=== PATIENT | male | born 1980 | race Caucasian/White ===

== ENCOUNTER 2020-07-11 10:22 | Emergency (ER) | payer BC, SELFPAY ==
--- NOTE | ~2020-07-11 | CT_ITS ---
EXAMINATION: CT brain wo con EXAM DATE: 07/11/2020 11:02 INDICATION: rt facial droop for few days. TECHNIQUE: Spiral CT of the head was performed without contrast. Axial, coronal and sagittal images were reviewed. The dose-length product (DLP) for this examination was 605.33 mGy-cm. The exposure w as tailored according to patient size, and iterative reconstruction (ASIR) was used as additional dos e reduction technique. There is no prior study for comparison. FINDINGS: There is no acute intraparenchymal hemorrhage. No evidence of intraparenchymal brain mass lesion. No evidence of acute infarction. There is no mass effect or midline shift. The ventricles are normal in size. There are no extra-axial collections. There are no acute calvarial fractures. T he orbits are unremarkable. Soft tissue is unremarkable. The visualized sinuses and mastoid air bernice ls are well aerated. IMPRESSION: 1. No acute intracranial findings. Reviewed, dictated and finalized at location B. TIC YARN TWISTER
--- NOTE | ~2020-07-11 | XR_ITS ---
EXAMINATION: XR chest 1V EXAM DATE: 07/11/2020 11:05 INDICATION: Right facial droop. TECHNIQUE: Portable AP frontal chest x-ray was obtained. There is no prior study for comparison. FINDINGS: The lungs are clear. There are no pleural effusions. The cardiomediastinal silhouette is within normal limits. There is no pneumothorax suspected. The bones and soft tissues are unremarkab le. IMPRESSION: No acute cardiopulmonary findings. Reviewed, dictated and finalized at location B. N ELEVATOR OPERATOR
[2020-07-11 10:25] VITALS: BP 132/83; PULSE 77; RESP 16; TEMP 36.3; O2SAT 100
--- NOTE | 2020-07-11 10:32 | ECG_ITS ---
Measurements Intervals [place] Rate: 67 P: 53 RI: 188 QRS: -34 QRSD: 150 T: 35 QT: 387 QTc: 410 Interpretive Statements SINUS RHYTHM LEFT AXIS DEVIATION RIGHT BUNDLE BRANCH BLOCK BASELINE ARTIFACT- I, II, AVR ABNORMAL ECG Electronically Signed On 07-11-2020 12:05:20 AERIAL CROP DUSTER by Pj Conklin D.O.
[2020-07-11 11:09] VITALS: BP 121/77; PULSE 78; O2SAT 99
[2020-07-11 11:57] VITALS: BP 158/108; PULSE 98; RESP 20; O2SAT 100
[2020-07-11 12:27] LABS: Basophils Percent Auto 0.5 % (0.2-1.2); Eosinophils Absolute Auto 0.2 K/mm3 (0-0.3); Eosinophils Percent Auto 2.8 % (0-4.4); Hematocrit 42.8 % (42.0-52.0); Hemoglobin 15.1 g/dL (14.0-18.0); Immature Granulocyte Absolute 0.02 K/mm3 (0.00-0.031); Immature Granulocyte Percent A 0.3 % (0-0.5); Lymphocytes Percent Auto 45.9 % (18.3-44.2); Mean Corpuscular HGB Conc 35.3 g/dl (32-36); Mean Corpuscular Hemoglobin 31.5 pg (26-34); Mean Corpuscular Volume 89.4 fl (80-100); Mean Platelet Volume 9.6 fl (7.4-10.4); Monocytes Absolute Auto 0.4 K/mm3 (0.1-0.6); Monocytes Percent Auto 5.8 % (2.6-8.5); Neutrophils Absolute Auto 2.9 K/mm3 (1.3-6.7); Neutrophils Percent Auto 44.7 % (45.5-73.1); Platelet Count Result 213 k/mm3 (150-375); Red Blood Count 4.79 M/mm3 (4.6-6.20); White Blood Count 6.5 K/mm3 (4.5-10.0)
--- NOTE | 2020-07-11 12:38 | ED.NEUROSD ---
HPI - Neuro Symptoms/Deficit General Chief Complaint: Neuro Symptoms/Deficit Stated Complaint: facial droop x 3 days Time Seen by Provider: 07/11/20 12:08 Source: patient and family Mode of arrival: ambulatory Limitations: no limitations History of Present Illness HPI Narrative: 40 years old white male complaining of numbness and weird feeling on the right side of the face started last night, Patient denies any similar symptoms anywhere else in his body. Patient denies any fever, chills, nausea, vomiting, headache, or hearing abnormality. Related Data Home Medications Medication Instructions Recorded Confirmed clonazepam 07/11/20 duloxetine mg PO 07/11/20 Allergies Allergy/AdvReac Type Severity Reaction Status Date / Time No Known Allergies Allergy Verified 07/11/20 10:33 Review of Systems Review of Systems: Narrative: CONSTITUTIONAL: Denies fever, chills, or sweats. EYES: Denies visual changes, redness, or discharge. ENT: Denies rhinorrhea, congestion, sore throat, or otalgia. CARDIOVASCULAR: Denies chest pain, palpitations, or edema. RESPIRATORY: Denies cough or dyspnea. GASTROINTESTINAL: Denies abdominal pain, nausea, vomiting, or diarrhea. GENITOURINARY: Denies dysuria or hematuria. SKIN: Denies rash or itching. MUSCULOSKELETAL: Denies back pain, joint pain, or myalgia. NEUROLOGIC: Denies headache, numbness, or weakness. PSYCHIATRIC: Denies anxiety or depression. [facility] Social History Social History Gender identity (if verbalized by the patient): Male Exam Narrative: Exam Narrative: General appearance: Well-developed, well-nourished Skin: Normal color Head: Normocephalic, nontraumatic Eyes: Clear conjunctiva ENT: Oropharynx normal, ears normal, nose normal Neck: Supple, nontender Chest and respiratory: Airway patent, no respiratory distress, no accessory muscle use Heart: Regular rate/rhythm Abdomen: Soft, nontender, no organomegaly, quiet bowel sounds Vascular: Normal peripheral pulses, normal capillary refill. Musculoskeletal: Normal range of motion, nontender back Neurologic: Alert and oriented ?3, slight right facial drooping. Neuro: General: oriented to person, oriented to place, oriented to time, patient oriented x3 and gait normal Cranial nerves: Yes Facial sensation intact/muscles of mastication intact (Slight right facial drooping) Motor exam (neuro): 5/5 motor strength present throughout and Normal motor muscle tone present throughout Sensory Exam: normal sensation Course Course Emergency Course: Stable Vital Signs Vital signs: Vital Signs Temperature 36.3 C L 07/11/20 10:25 Pulse Rate 77 07/11/20 10:25 Respiratory Rate 16 07/11/20 10:25 Blood Pressure 132/83 07/11/20 10:25 Pulse Oximetry 100 07/11/20 10:25 Temperature 36.3 C L 07/11/20 10:25 Pulse Rate 98 07/11/20 11:57 Respiratory Rate 20 07/11/20 11:57 Blood Pressure 158/108 H 07/11/20 11:57 Pulse Oximetry 100 07/11/20 11:57 MDM - Neuro Symptoms/Deficit MDM Narrative Medical decision making narrative: Right Gaviria's palsy is my concern. Labs, CT head ordered. Further plan to follow Differential Diagnosis Differential diagnosis: Likely other (Gaviria's palsy, peripheral) Lab Data Result diagrams: 07/11/20 12:16 07/11/20 12:16 Labs: Lab Results 07/11/20 07/11/20 07/11/20 Range/Units 12:16 12:16 12:16 WBC 6.5 (4.5-10.0) K/mm3 RBC 4.79 (4.6-6.20) M/mm3 Hgb 15.1 (14.0-18.0) g/dL Hct 42.8 (42.0-52.0) % MCV 89.4 (80-100) fl MCH 31.5 (26-34) pg MCHC 35.3 (32-36) g/dl RDW 12.0 (11.5-14.5) % P
[2020-07-11 12:39] LABS: Anion Gap 6 mmol/L (8-16); Blood Urea Nitrogen 19 mg/dL (9-20); Calcium 9.5 mg/dL (8.4-10.2); Carbon Dioxide 29 mmol/L (22-30); Chloride 103 mmol/L (98-107); Estimated CRCL calculation 112 ml/min; Estimated Glomerular Filt Rate > 60; Glucose 101 mg/dL (75-110); INR 0.8; Potassium 4.2 mmol/L (3.4-5.0); Prothrombin Time 12.1 Seconds (11.1-14.7); Sodium 138 mmol/L (137-145)
[2020-07-11 12:52] LABS: Troponin I < 0.012 ng/mL (0.000-0.034)
[2020-07-11 13:09] VITALS: BP 138/78; PULSE 57; RESP 18; O2SAT 99
== END 2020-07-11 13:11 | disposition home or self-care (01) ==
PROVIDERS: Emergency Provider Emergency Medicine; PCP Internal Medicine
DX: G51.0 Bell's palsy (principal); I45.10 Unspecified right bundle-branch block; R94.31 Abnormal electrocardiogram [ECG] [EKG]
CPT/HCPCS: 36415; 70450; 71045; 80048; 84484; 85025; 85610; 85730; 93005; 99284

== ENCOUNTER 2021-06-23 13:48 | Emergency (ER) | payer BC, SELFPAY ==
[2021-06-23 14:06] VITALS: BP 154/87; PULSE 77; RESP 18; TEMP 37.6; O2SAT 98
--- NOTE | 2021-06-23 14:24 | ED.EAR ---
HPI - Ear Problem General Chief complaint: Ear Stated complaint: ear pain Source: patient and RN notes reviewed Mode of arrival: ambulatory History of Present Illness HPI Narrative: This is a 41-year-old male with a presented to urgent care with complaints of right ear pain that is occurred on .according to patient the canal on his right ear is swollen patient notes that his partner also noticed blood tinged drainage on the affected ear he also notes that he has had some decrease in hearing due to his swelling. Patient notes that he often rinses his ear out at work due to debridement and believes he may have gotten swimmer's ear as a result of not drying his ear out completely. The patient denies SOB, CP, palpitation, extremity numbness, lightheadedness, dizziness, constipation, diarrhea, chills, or fever. Related Data Home Medications Medication Instructions Recorded Confirmed clonazepam 07/11/20 emtricitabine-tenofovir alafen tablet PO 06/23/21 [Descovy] Allergies Allergy/AdvReac Type Severity Reaction Status Date / Time No Known Allergies Allergy Verified 06/23/21 14:05 Review of Systems Review of Systems: A 14 organ system Review of Systems was performed and pertinent positives included in the HPI, otherwise remaining ROS is negative. [facility] Family History Family History (Updated 06/23/21 @ 14:27 by DARCIE Casey) Other Family history non-contributory Social History Social History Gender identity (if verbalized by the patient): Male Exam Narrative: GENERAL: This is a well-nourished, well-developed patient, in no apparent distress. HEAD: normocephalic, atraumatic. EYES: PERRL. Sclera clear/white. Vision is grossly intact. EARS: External ears normal, auditory canals edema with erythematous, unable to visualize TMs NOSE: External nose normal with no obvious nasal discharge, nares without redness, no rhinorrhea. THROAT: Mucous membranes moist, posterior pharynx clear. NECK: Neck supple, non-tender without lymphadenopathy, masses or thyromegaly. CARDIOVASCULAR: Regular rate and rhythm without murmurs, gallops, or rubs. RESPIRATORY: Clear to auscultation. Breath sounds equal bilaterally. No wheezes, rales, or rhonchi. GASTROINTESTINAL: Abdomen soft, non-tender, nondistended. Bowel sounds are active. No hepato-splenomegaly, or palpable masses. No guarding. SKIN: warm, intact with no suspicious lesions or rash, good texture and turgor. NEURO: awake, alert, and oriented to person, place and time. There were no obvious focal neurologic abnormalities. Steady gait EXTREMITIES: Normal range of motion. No edema. No calf tenderness. Negative Homans sign bilaterally. BACK: Nontender without deformity or crepitance. No flank tenderness. Course Course Emergency Course: Patient will be treated for otitis media and externa with Augmentin DS twice daily x7 days and Cipro 0.3 eardrops x7 days. Patient also instructed to buy [id number] cerumen softener or use have peroxide and water to regularly cleanse his ears and to make sure they are dry afterwards. Vital Signs Vital signs: Vital Signs Temperature 99.6 F 06/23/21 14:06 Pulse Rate 77 06/23/21 14:06 Respiratory Rate 18 06/23/21 14:06 Blood Pressure 154/87 H 06/23/21 14:06 Pulse Oximetry 98 06/23/21 14:06 Temperature 99.6 F 06/23/21 14:06 Pulse Rate 77 06/23/21 14:06 Respiratory Rate 18 06/23/21 14:06 Blood Pressure 154/87 H 06/23/21 14:06 Pulse Oximetry 98 06/23/21 14:06 Medical Decision Making Differential Diagnosis Differential Diagnosis: Otitis media versus otitis externa versus foreign body in ear Vital Signs Vital Signs: Vital Signs Temperature 99.6 F 06/23/21 14:06 Pulse Rate 77 06/23/21 14:06 Respiratory Rate 18 06/23/21 14:06 Blood Pressure 154/87 H 06/23/21 14:06 Pulse Oximetry 98 06/23/21 14:06 Temperature
== END 2021-06-23 14:46 | disposition home or self-care (01) ==
PROVIDERS: Emergency Provider Nurse Practitioner
DX: H60.501 Unspecified acute noninfective otitis externa, right ear (principal); H66.90 Otitis media, unspecified, unspecified ear
CPT/HCPCS: 99213; G0463

== ENCOUNTER 2021-09-07 18:33 | Emergency (ER) | payer BC, SELFPAY ==
--- NOTE | ~2021-09-07 | CT_ITS ---
EXAMINATION: CT brain wo con DATE: 09/07/2021 20:09 INDICATION: Headache TECHNIQUE: Computed tomography (CT) of the head was performed without intravenous contrast. Sagittal and coronal reconstructions were performed. The mA was adjusted according to patient size. Iterative reconstruction technique was employed. The dose-length product was 605.33 mGy-cm. COMPARISON: head CT dated 07/11/2020 FINDINGS: No acute intracranial hemorrhage, acute infarction or abnormal extra axial fluid collection. Ventricl es are normal and symmetric. No mass/mass effect. The orbits, paranasal sinuses and mastoid air cells are normal. IMPRESSION: 1. Normal head CT. Reviewed, dictated and finalized at location A. N WINDER IMPRESSION: 1. Normal head CT.
--- NOTE | ~2021-09-07 | XR_ITS ---
EXAMINATION: XR chest 2V DATE: 09/07/2021 20:16 INDICATION: Fever, headaches and photophobia TECHNIQUE: frontal and lateral views of the chest were obtained. COMPARISON: Chest radiograph dated 07/11/2020 FINDINGS: The lungs remain clear with no focal airspace opacities, pulmonary edema, pleural effusion or pneumot horax. The cardiomediastinal silhouette is normal. Visualized bones and soft tissues are unremarkable . IMPRESSION: 1. No acute cardiopulmonary disease. Reviewed, dictated and finalized at location A. MAL SURFACING MACHINE OPERATOR
--- NOTE | ~2021-09-07 | CT_ITS ---
EXAMINATION: CT abdomen pelvis w con DATE: 09/08/2021 00:57 INDICATION: Fever. Nausea. TECHNIQUE: Computed tomography (CT) of the abdomen and pelvis was performed with 100 mL Omnipaque 350 intravenous contrast. Automated exposure control and iterative reconstruction technique were employe d. The dose-length product was 1619.03 mGy-cm. COMPARISON: None. FINDINGS: The visualized portions of the lung bases demonstrate mild atelectasis. There are tiny pleu ral effusions. The heart size is normal. No pericardial effusion. There are surgical changes of the s tomach. There is focal steatosis in the liver adjacent to the falciform ligament. The spleen, pancrea s, and adrenal glands are normal. The gallbladder is distended. The kidneys are normal. There is liqu id stool in colon suggestive of diarrhea. There is mild wall thickening of the colon, consistent with colitis. The appendix is normal. There are no pathologically enlarged lymph nodes. There is trace as cites. There is subcutaneous fat stranding in the abdominal wall, left worse than right, at least delicia e of which may be inflammation from recent surgery. There is severe lumbar spondylosis and mild thora cic spondylosis. IMPRESSION: 1. Colitis. 2. Gallbladder distention, which may be secondary to fasting. Reviewed, dictated and finalized at location A.
--- NOTE | ~2021-09-07 | XR_ITS ---
EXAMINATION: XR lumbar puncture diagnostic DATE: 09/07/2021 21:57 INDICATION: Headache and fever TECHNIQUE: The procedure including the risks and benefits was discussed with the patient. Risks discu ssed included spinal headache, cerebrospinal fluid leak, bleeding, and infection. The patient underst ood the risks and agreed to proceed. A timeout was performed to verify the patient's name, date of , and procedure to be performed. The skin overlying the L4-L5 level was prepped and draped in usual sterile fashion. Subcutaneous 1% lidocaine was used for local anesthesia. A 5 inch 20 gauge s maria fernanda needle was advanced under fluoroscopic guidance. The needle was removed and the entry site was cleaned and dressed. There were no immediate complications. A total of 1 fluoroscopic image(s) were obtained. The amount of fluoroscopy time used during this procedure was 0.1 minutes. The patient was taken to the nursing area for observation. 2 fluoroscopic images recorded. FINDINGS: Real-time fluoroscopy demonstrates the needle at the L4-L5 level. Opening pressure was mean pressure was 22 cm water. (Normal range is variably defined as 6-20 cm water and up to 25 cm water i n obese patients. Pressure >25 cm water is one of the modified Dandy criteria for idiopathic intracra nial hypertension). 14 mL of clear, colorless fluid was collected in 4 tubes. Closing pressure was <16 cm water IMPRESSION: 1. Successful fluoro-guided lumbar puncture. Reviewed, dictated and finalized at location A. FLOOR INSTALLER
[2021-09-07 18:39] VITALS: BP 121/69; PULSE 96; RESP 22; TEMP 38.4; O2SAT 99
[2021-09-07 19:28] VITALS: BP 110/56; PULSE 75; RESP 20; TEMP 38.6; O2SAT 98
--- NOTE | 2021-09-07 19:37 | ED.HA ---
HPI - Headache General Chief Complaint: Headache <Hari Connell APRN - Last Filed: 09/08/21 00:53> Stated Complaint: headache <Hari Connell APRN - Last Filed: 09/08/21 00:53> Time Seen by Provider: 09/07/21 19:24 <Hari Connell APRN - Last Filed: 09/08/21 00:53> History of Present Illness HPI Narrative: 41-year-old male who recently had gastric sleeve surgery 4 days ago, presents the emergency room with acute onset of headache. Patient states that headache began earlier today accompanied with a fever. States the onset was gradual, describes the pain as sharp and behind the eyes that circles the entire head. Patient states headache is associated with photophobia, phonophobia, and slight nausea. Denies abdominal pain. States pain radiates into his neck. Denies upper respiratory symptoms. Patient states he took a Tylenol No. 3 for his fever at approximately 430. <Hari Connell APRN - Last Filed: 09/08/21 00:53> Related Data Home Medications: Home Medications Medication Instructions Recorded Confirmed clonazepam 07/11/20 emtricitabine-tenofovir alafen tablet PO 06/23/21 [Descovy] <Hari Connell APRN - Last Filed: 09/08/21 00:53> Allergies/Adverse Reactions: Allergies Allergy/AdvReac Type Severity Reaction Status Date / Time No Known Allergies Allergy Verified 09/07/21 18:45 <Hari Connell APRN - Last Filed: 09/08/21 00:53> Review of Systems Review of Systems: CONSTITUTIONAL: Denies fever, chills, or sweats. EYES: Denies visual changes, redness, or discharge. ENT: Denies rhinorrhea, congestion, sore throat, or otalgia. CARDIOVASCULAR: Denies chest pain, palpitations, or edema. RESPIRATORY: Denies cough or dyspnea. GASTROINTESTINAL: Denies abdominal pain or diarrhea. Reports nausea GENITOURINARY: Denies dysuria or hematuria. SKIN: Denies rash or itching. MUSCULOSKELETAL: Denies back pain, joint pain, or myalgia. Reports neck pain NEUROLOGIC: Reports headache. denies numbness, dizziness, or weakness. PSYCHIATRIC: Denies anxiety or depression. <Hari Connell APRN - Last Filed: 09/08/21 00:53> [facility] Family History Family History: Family History Other Family history non-contributory <Hari Connell APRN - Last Filed: 09/08/21 00:53> Social History Social History: Social History Gender identity (if verbalized by the patient): Male <Hari Connell APRN - Last Filed: 09/08/21 00:53> Exam Narrative: GENERAL: obese and appears ill. HEAD: Normocephalic, atraumatic. EYES: PERRLA and EOMI. ENT: Nares clear, no rhinorrhea or epistaxis. Mucous membranes moist. NECK: Supple. No adenopathy or masses. No carotid bruits or JVD; no nuchal rigidity CHEST: Clear to auscultation. No respiratory distress. No wheezes rales or rhonchi HEART: Regular rate and rhythm. No murmur heard. Normal peripheral pulses. ABDOMEN: Soft, nontender, nondistended, normal active bowel sounds. 3 abdominal wounds noted with overlying surgical glue. No erythema, no soft tissue swelling, tenderness, or purulent discharge from any of the surgical wounds EXTREMITIES: Normal range of motion. No edema. SKIN: Warm, dry, no rash. NEURO: No focal deficits. Alert and oriented x3. Negative Kernig sign, negative Brudzinski sign PSYCH: Normal mood and affect. <Hari Connell APRN - Last Filed: 09/08/21 00:53> Neuro: General: patient oriented x3, moves all extremities, no meningeal signs and CN's II-XI intact bilaterally <Hari Connell APRN - Last Filed: 09/08/21 00:53> Cranial nerves: Yes Nystagmus not present <Hari Connell APRN - Last Filed: 09/08/21 00:53> Speech: normal speech <Hari Connell APRN - Last Filed: 09/08/21 00:53> Gait exam (Neuro): Normal gait present <Hari Connell, PICKING TECH - Last Filed: 09/08/21 00:53> Course Course Emergen
[2021-09-07] MEDS: methylPREDNISolone SOD SUCC 125 MG VIAL IV PUSH (19:39)
[2021-09-07] MEDS: diphenhydrAMINE HCl INJ 50 MG/ML VIAL 25 MG IV PUSH (19:40)
[2021-09-07] MEDS: KETOROLAC 30 MG/ML VIAL (*BKC) IV PUSH (19:41)
[2021-09-07] MEDS: METOCLOPRAMIDE HCL INJ 10 MG/2 ML VIAL IV PUSH (19:42)
[2021-09-07 19:51] LABS: Basophils Absolute Auto 0.1 K/mm3 (0.0-0.1); Basophils Percent Auto 0.3 % (0.2-1.2); Eosinophils Percent Auto 0.1 % (0-4.4); Hematocrit 42.2 % (42.0-52.0); Hemoglobin 15.1 g/dL (14.0-18.0); Immature Granulocyte Absolute 0.06 K/mm3 (0.00-0.031); Immature Granulocyte Percent A 0.4 % (0-0.5); Lymphocytes Absolute Auto 0.54 K/mm3 (0.9-3.2); Lymphocytes Percent Auto 3.7 % (18.3-44.2); Mean Corpuscular HGB Conc 35.8 g/dl (32-36); Mean Corpuscular Hemoglobin 32.3 pg (26-34); Mean Corpuscular Volume 90.2 fl (80-100); Monocytes Absolute Auto 0.9 K/mm3 (0.1-0.6); Monocytes Percent Auto 5.8 % (2.6-8.5); Neutrophils Absolute Auto 13.1 K/mm3 (1.3-6.7); Neutrophils Percent Auto 89.7 % (45.5-73.1); Platelet Count Result 189 k/mm3 (150-375); Red Blood Count 4.68 M/mm3 (4.6-6.20); Red Cell Distribution Width 13.2 % (11.5-14.5); White Blood Count 14.6 K/mm3 (4.5-10.0)
[2021-09-07] MEDS: SODIUM CHLORIDE 0.9% IV 1,000 ML 999 ML IV CONT (19:51)
[2021-09-07 20:00] LABS: Alanine Aminotransferase 48 U/L (4-50); Albumin Level 4.1 g/dL (3.5-5.1); Alkaline Phosphatase 38 U/L (38-126); Anion Gap 9 mmol/L (8-16); Aspartate Amino Transferase 37 U/L (17-59); Blood Urea Nitrogen 12 mg/dL (9-20); Calcium 8.6 mg/dL (8.4-10.2); Carbon Dioxide 26 mmol/L (22-30); Chloride 98 mmol/L (98-107); Estimated CRCL calculation 100 ml/min; Estimated Glomerular Filt Rate > 60; Glucose 121 mg/dL (65-110); INR 1.1; Potassium 3.4 mmol/L (3.4-5.0); Prothrombin Time 14.1 Seconds (11.1-14.7); Sodium 133 mmol/L (137-145)
[2021-09-07 20:01] LABS: Partial Thromboplastin Time 34.6 SECONDS (22.3-36.8)
[2021-09-07 20:31] LABS: SARS-CoV-2 RNA PCR Negative
[2021-09-07 22:16] LABS: Glucose CSF 55 mg/dL (40-70); Total Protein CSF 45 mg/dL (12-60)
[2021-09-07 22:25] LABS: Lactic Acid Reflex 0.9 mmol/L (0.7-2.1)
[2021-09-07 22:55] LABS: Add Urine Microscopic? YES; Appearance Urine Clear (Clear); Bilirubin Urine Negative (Negative); Blood Urine Negative (Negative); Color Urine Yellow (Yellow); Glucose Urine UA Negative (Negative); Ketones Urine Trace mg/dL (Negative); Leukocyte Esterase Ur Negative LEU/UL (Negative); Mucus Urine Rare /lpf; Nitrate Urine Negative (Negative); Protein Urine Negative (Negative); RBC Urine 0-2 /hpf (0-2); Specific Grav Ur 1.006 (1.001-1.035); Urobilinogen Urine Negative mg/dL (<2.0); WBC Urine 0-3 /hpf
[2021-09-07 23:05] LABS: Lymphocytes CSF 74 % (40-80); Macrophages CSF 1; Monocytes CSF 25 % (15-45)
[2021-09-07 23:06] LABS: Appearance CSF Clear (Clear); CSF source CSF; Color CSF Colorless (Colorless); Nucleated Cell CSF 12 /uL (0-5); Red Blood Cell CSF 9 (0-2)
[2021-09-07 23:42] VITALS: BP 97/52; PULSE 58; RESP 18; O2SAT 96
[2021-09-07 23:43] VITALS: PULSE 65; RESP 14; O2SAT 97
[2021-09-08 00:08] VITALS: BP 164/70; PULSE 102; RESP 20; TEMP 36.9; O2SAT 98
[2021-09-08] MEDS: SODIUM CHLORIDE 0.9% IV 1,000 ML 150 ML IV CONT (00:57)
--- NOTE | 2021-09-08 01:03 | PC.NURSE ---
Report to GUALBERTO Diaz at [facility]. Pt to go to Room 8226. Will call [phone] when EMS arrives.
[2021-09-08 03:15] VITALS: BP 111/59; PULSE 80; RESP 20; TEMP 36.8; O2SAT 99
[2021-09-08 03:16] VITALS: BP 114/59; PULSE 80; RESP 20; TEMP 36.8; O2SAT 99
[2021-09-11 13:11] LABS: Herpes Simplex Type 1 DNA PCR Not Detected (Not Detected); Herpes Simplex Type 2 DNA PCR Not Detected (Not Detected)
== END 2021-09-08 03:20 | disposition short-term general hospital (02) ==
PROVIDERS: Emergency Medicine; Emergency Provider Nurse Practitioner Family
DX: R50.82 Postprocedural fever (principal); R51.9 Headache, unspecified; K52.9 Noninfective gastroenteritis and colitis, unspecified; Z98.84 Bariatric surgery status; Z20.822 Contact with and (suspected) exposure to COVID-19
CPT/HCPCS: 36415; 62328; 70450; 71046; 74177; 80053; 81001; 82945; 83605; 84157; 85025; 85610; 85730; 87040; 87070; 87205; 87255; 87529; 87804; 89051; 96361; 96374; 96375; 99285; C9803; J1200; J1885; J2765; J2930; J7030; Q9967; U0003; U0005